=== PATIENT | female | born 1980 | race Caucasian/White ===

== ENCOUNTER → 2017-08-18 | Outpatient (CLI) | payer BC ==
[~2017-08-18] MED LIST: ADDERALL PO; ALBU90OI INH; AMOX500 PO; AZIT250 PO; AZIT500 PO; CARB200 PO; CIPR500 PO; CITA20 PO; CLON1 PO; CYAN1000I IM; DIVA250EC PO; ESCI20; FLUC150A PO; FLUC200 PO; HYDACE5 PO; HYDGUAL120 PO; LORA10ER PO; MULVITMINE PO; ONDA4ODT MM; PARO20 PO; PHENA200 PO; PROCODE120 PO; RXONDA4ODT MM; SERT100 PO; SULTRIDS PO; TEGRETOL; [UNRECOGNIZED DRUG - OTHER]
== END | disposition home or self-care (01) ==
LOC: LAB EV 15:01
DX: N39.0 Urinary tract infection, site not specified (principal)
CPT/HCPCS: 87086

== ENCOUNTER → 2019-04-26 | Outpatient (CLI) | payer BC, OTHER ==
[2019-04-26 16:49] LABS: Source, Urine Clean Catch
[2019-04-26 19:53] LABS: Blood, Urine 5+ (Neg); Glucose Qualitative, Urine Neg (Neg); Ketones, Urine 1+ (Neg); Leukocyte Esterase, Urine 2+ (Neg); Nitrite, Urine Neg (Neg); Protein, Urine 3+ (Neg); Specific Gravity, Urine 1.015 (1.003-1.022); Urobilinogen, Urine 2+ (Normal)
[2019-04-26 20:07] LABS: Appearance, Urine Cloudy (Clear); Bilirubin, Urine 1+ (Neg); Color, Urine Brown (P-Yellow)
[2019-04-26 20:08] LABS: Amorphous Mod (0-Heavy); Bacteria Many /hpf; Red Blood Cells, Urine TNTC /hpf (0-2); Squamous Epithelial Cells Few /hpf (Few); White Blood Cells, Urine 25-50 /hpf (0-5)
== END | disposition home or self-care (01) ==
LOC: LAB 14:25 → LAB SHORT 14:25 → LAB FUT 04-26 16:05
PROVIDERS: Family Medicine
DX: R35.0 Frequency of micturition (principal)
CPT/HCPCS: 81001; 87077; 87086; 87186

== ENCOUNTER → 2019-11-27 | Outpatient (CLI) | payer BC, OTHER ==
[2019-11-27 15:27] LABS: Source, Urine Clean Catch
[2019-11-27 18:54] LABS: Bilirubin, Urine Neg (Neg); Blood, Urine 3+ (Neg); Glucose Qualitative, Urine Neg (Neg); Ketones, Urine 1+ (Neg); Leukocyte Esterase, Urine 1+ (Neg); Nitrite, Urine Neg (Neg); Protein, Urine 1+ (Neg); Urobilinogen, Urine NORM (Normal)
[2019-11-27 19:10] LABS: Appearance, Urine Turbid (Clear); Color, Urine Yellow (P-Yellow)
[2019-11-27 19:11] LABS: Amorphous Heavy (0-Heavy)
[2019-11-27 19:14] LABS: Bacteria Few /hpf; Squamous Epithelial Cells Few /hpf (Few)
== END | disposition home or self-care (01) ==
LOC: LAB SHORT 15:24 → LAB 15:24 → LAB FUT 11-19 14:25
PROVIDERS: Family Medicine
DX: R35.0 Frequency of micturition (principal)
CPT/HCPCS: 81001; 87077; 87086; 87186

== ENCOUNTER 2020-08-16 19:00 | Emergency (ER) | payer OTHER ==
[~2020-08-16] VITALS: Ht 170.2 cm; Wt 97.5 kg
[2020-08-16] MEDS ORDERED: Robaxin-750750 MG PO (22:36)
[2020-08-16] MEDS ORDERED: IBUP800 PO (22:36)
== END 2020-08-16 22:54 | disposition home or self-care (01) ==
LOC: ER 19:00
DX: M54.6 Pain in thoracic spine (principal); M54.2 Cervicalgia; F17.200 Nicotine dependence, unspecified, uncomplicated; Z88.8 Allergy status to other drugs, medicaments and biological substances; Z79.899 Other long term (current) drug therapy; V49.50XA Passenger injured in collision with unspecified motor vehicles in traffic accident, initial encounter
CPT/HCPCS: 72070; 72125; 99284-25; A9270

== ENCOUNTER 2021-03-19 00:57 | Emergency (ER) | payer OTHER ==
[~2021-03-19] VITALS: Ht 170.2 cm; Wt 97.5 kg
[~2021-03-19 00:57] MED LIST changes: +IBUP800 PO; +Robaxin-750750 MG PO
[2021-03-19] MEDS ORDERED: AMPDEX10 (02:15)
[2021-03-19] MEDS ORDERED: Budeprion Xl300 MG PO (02:15)
[2021-03-19] MEDS ORDERED: Norco 5-325 Ta1 EACH PO (02:49)
[2021-03-19] MEDS ORDERED: IBUP800 PO (02:49)
[2021-03-23] MEDS ORDERED: LISI20 PO (19:33)
[2021-03-23] MEDS ORDERED: HYDCHL25 PO (19:36)
[2021-03-24] MEDS ORDERED: ACET500 PO (00:28)
[2021-03-24] MEDS ORDERED: CYCL10 PO (00:29)
[2021-03-24] MEDS ORDERED: ROXICODONE5 MG PO (00:30)
== END 2021-03-19 04:15 | disposition home or self-care (01) ==
LOC: ER 00:57
DX: S76.112A Strain of left quadriceps muscle, fascia and tendon, initial encounter (principal); W10.9XXA Fall (on) (from) unspecified stairs and steps, initial encounter; F17.200 Nicotine dependence, unspecified, uncomplicated
CPT/HCPCS: 73560-LT; 96374; 96375; 99283-25; A9270; J1885; J2270

== ENCOUNTER 2021-03-21 13:07 | Emergency (ER) | payer OTHER ==
[~2021-03-21] VITALS: Ht 170.2 cm; Wt 113.4 kg
[~2021-03-21 13:07] MED LIST changes: +AMPDEX10; +Budeprion Xl300 MG PO; +Norco 5-325 Ta1 EACH PO
[2021-03-21] MEDS ORDERED: Norco 5-325 Ta1 EACH PO (16:11)
[2021-03-21] MEDS ORDERED: IBU600 M1 PO (16:11)
== END 2021-03-21 16:35 | disposition home or self-care (01) ==
LOC: ER 13:07
DX: M25.562 Pain in left knee (principal); R53.1 Weakness; S76.122A Laceration of left quadriceps muscle, fascia and tendon, initial encounter; S76.112A Strain of left quadriceps muscle, fascia and tendon, initial encounter; M25.062 Hemarthrosis, left knee
CPT/HCPCS: 73721; 99282

== ENCOUNTER 2021-03-23 06:44 | Observation (INO) | payer OTHER ==
[~2021-03-23] VITALS: Ht 170.2 cm; Wt 119.0 kg
[~2021-03-23 06:44] MED LIST changes: +IBU600 M1 PO
[2021-03-23 09:53] LABS: SARS-Cov-2 (COVID-19) PCR, MMC NEGATIVE (NEGATIVE)
--- NOTE | 2021-03-23 10:38 | NUR ---
ATTEMPTING IV ACCESS AT THIS TIME
--- NOTE | 2021-03-23 10:39 | NUR ---
DIRECT ADMIT: PT TO UNIT AT ABOUT 0830. DR. HOUSER NOTIFIED THAT PT ON UNIT. PT TRANSFERED FROM WHEELCHAIR TO BED WITH 2 ASSIST AND GAIT BELT, PT ANXIOUS ABOUT ANY MOVEMENT. VSS, PT A/O. SURGICAL PACKET STICKERED AND BLOOD CONSENT SIGNED. WILL CTM AND AWAIT SURGERY.
--- NOTE | 2021-03-23 12:19 | NUR ---
PT TO OR AT ABOUT 1210
--- NOTE | 2021-03-23 18:00 | NUR ---
POST OP: REPORT RECEIVED FROM RNGENI. PT TO UNIT AT 9915. PT IS A/O, VSS. PT CRYING "THE PAIN, OH GOD" OVER AND OVER AGAIN. PT MEDICATED FOR PAIN AND ANXIETY. WILL CTM
[2021-03-23] MEDS ORDERED: LISI20 PO ×2 (19:33)
[2021-03-23] MEDS ORDERED: HYDCHL25 PO ×2 (19:36)
[2021-03-23 21:06] LABS: Source, Urine Clean Catch
[2021-03-23 21:09] LABS: Appearance, Urine Clear (Clear); Bilirubin, Urine Neg (Neg); Blood, Urine 5+ (Neg); Color, Urine Yellow (P-Yellow); Glucose Qualitative, Urine 2+ (Neg); Ketones, Urine Neg (Neg); Leukocyte Esterase, Urine Neg (Neg); Nitrite, Urine Neg (Neg); Protein, Urine Neg (Neg); Urobilinogen, Urine NORM (Normal); pH, Urine 6.5 (5.0-8.0)
[2021-03-23 21:19] LABS: Bacteria Not Seen /hpf; Other Crystals Rare /hpf; Red Blood Cells, Urine 0-2 /hpf (0-2); Squamous Epithelial Cells Rare /hpf (Few); White Blood Cells, Urine 0-2 /hpf (0-5)
[2021-03-24] MEDS ORDERED: ACET500 PO ×2 (00:28)
[2021-03-24] MEDS ORDERED: CYCL10 PO ×2 (00:29)
[2021-03-24] MEDS ORDERED: ROXICODONE5 MG PO ×2 (00:30)
--- NOTE | 2021-03-24 02:23 | NUR ---
SHIFT SUMMARY: POD 1 LEFT PATELLA TENDON REPAIR PATIENT IS ALERT AND ORIENTED X4. SHE IS ON RA. PAIN IS MANAGED WITH PO DILAUDID, TYLENOL, FLEXERIL, IGNACIO, AND XANAX. PATIENT HAS AN IMMOBILIZER IN PLACE ON THE LEFT LEG. THE IMMOBILIZER IS C/D/I. SHE DENIES NUMBNESS AND TINGLING IN ALL EXTREMITIES. SHE IS ABLE TO WIGGLE FINGERS AND TOES WHEN ASKED. SHE IS ABLE TO BE WEIGHT BEARING TOLERATED WITH IMMOBILIZER ON. SHE CALLS APPROPRIATELY. SHE HAS BEEN SLEEPING MAJORITY OF THE NIGHT AFTER TALKING WITH HER ABOUT HER ANXIETY. CALL LIGHT WITHIN REACH. SHE IS TOLERATING PO INTAKE AND IS VOIDING. THE PLAN IS TO HAVE PT WORK WITH HER AND THEN POSSIBLE DISCHARGE LATER TODAY.
--- NOTE | 2021-03-24 10:53 | NUR ---
PT HAS WORKED WITH PHYSICAL THERAPY TODAY, AND IS SITTING UP IN CHAIR. USING 1X ASSIST WITH FWW AND GAIT BELT. BRACE IN PLACE FOR ALL TRANSFERS. PT C/O PAIN IN LLE; MEDICATED PER ORDERS.
--- NOTE | 2021-03-24 12:03 | NUR ---
PT WORKED WITH OT RECENTLY. STATES SHE GOT DIZZY WHEN STANDING UP, HOWEVER SBP TAKEN AT THAT TIME WAS IN THE 150'S. PT BACK IN BED.
--- NOTE | 2021-03-24 14:07 | NUR ---
TRANSPORT ARRANGED FOR PT AT 1700 VIA [facility].
--- NOTE | 2021-03-24 17:09 | NUR ---
DISCHARGE PT A/O X4, TRANSFERRING WITH FWW AND GAIT BELT, SBA. TOLERATING PO INTAKE AND VOIDING. PT DC'D AT 1700 VIA [facility]. PERSONAL BELONGINGS SENT WITH PT. DC INSTRUCTIONS REVIEWED WITH PT; REPORTS NO QUESTIONS OR CONCERNS. EXTRA DRESSINGS AND SCRIPTS SENT WITH PT. PAIN MANAGED WITH PO PAIN MED PER ORDERS.
== END 2021-03-24 18:36 | disposition home or self-care (01) ==
LOC: SURS 06:44
PROVIDERS: ADMIT Orthopaedic Surgery
PROC: 0LQR0ZZ Repair Left Knee Tendon, Open Approach (ICD-10-PCS; principal; 2021-03-23 12:00)
DX: S76.112A Strain of left quadriceps muscle, fascia and tendon, initial encounter (principal); F17.200 Nicotine dependence, unspecified, uncomplicated; F32.9 Major depressive disorder, single episode, unspecified; X50.1XXA Overexertion from prolonged static or awkward postures, initial encounter; Z20.822 Contact with and (suspected) exposure to COVID-19
CPT/HCPCS: 73560-LT; 81001; 96365; 97110; 97116; 97162; 97166; 97530; A9270; C1713; C1762; G0378; J0171; J0690; J1100; J1885; J2060; J2405; J2704; J3010; J7050; J7120; U0004

== ENCOUNTER → 2022-05-06 | Outpatient (CLI) | payer OTHER ==
[~2022-05-06] MED LIST changes: +ACET500 PO; +CYCL10 PO; +HYDCHL25 PO; +LISI20 PO; +ROXICODONE5 MG PO
[2022-05-06 13:45] LABS: U Amphetamine Screen DETECTED; U Methamphetamine Screen DETECTED
[2022-05-06 13:46] LABS: U Barbituate Screen Not Detected; U Benzodiazapine Screen Not Detected; U Buprenorphine Screen Not Detected; U Cannabinoids Screen Not Detected; U Cocaine Screen Not Detected; U Methadone Screen Not Detected; U Opiates Screen Not Detected; U Oxycodone Screen Not Detected; U Phencyclidine Screen Not Detected; U Propoxyphene Screen Not Detected
== END | disposition home or self-care (01) ==
LOC: LAB 12:23 → LAB SHORT 12:23
PROVIDERS: Nurse Practitioner Psychiatric/Mental Health
DX: Z51.81 Encounter for therapeutic drug level monitoring (principal); F90.2 Attention-deficit hyperactivity disorder, combined type
CPT/HCPCS: G0480

== ENCOUNTER → 2022-06-14 | Outpatient (CLI) | payer OTHER | END | disposition home or self-care (01) | LOC: LAB SHORT 12:59 → LAB 12:59 | DX: L08.9 Local infection of the skin and subcutaneous tissue, unspecified (principal) | CPT/HCPCS: 87070; 87106; 87205 ==

== ENCOUNTER → 2022-08-11 | Outpatient (CLI) | payer OTHER ==
[2022-08-11 13:03] LABS: U Amphetamine Screen DETECTED; U Barbituate Screen Not Detected; U Benzodiazapine Screen Not Detected; U Buprenorphine Screen Not Detected; U Cannabinoids Screen Not Detected; U Cocaine Screen Not Detected; U Methadone Screen Not Detected; U Methamphetamine Screen DETECTED; U Opiates Screen Not Detected; U Oxycodone Screen Not Detected; U Phencyclidine Screen Not Detected
[2022-08-11 13:04] LABS: U Propoxyphene Screen Not Detected
== END | disposition home or self-care (01) ==
LOC: LAB SHORT 10:30
PROVIDERS: Nurse Practitioner Psychiatric/Mental Health
DX: F90.2 Attention-deficit hyperactivity disorder, combined type (principal)

== ENCOUNTER 2023-05-09 11:34 | Emergency (ER) | payer OTHER ==
[~2023-05-09] VITALS: Ht 170.2 cm; Wt 113.4 kg
[2023-05-09 12:41] LABS: Source, Urine Clean Catch
[2023-05-09 13:06] LABS: Appearance, Urine Cloudy (Clear); Bilirubin, Urine Neg (Neg); Blood, Urine 5+ (Neg); Color, Urine Amber (P-Yellow); Glucose Qualitative, Urine Neg (Neg); Ketones, Urine Neg (Neg); Leukocyte Esterase, Urine 3+ (Neg); Nitrite, Urine Pos (Neg); Protein, Urine 3+ (Neg); Urobilinogen, Urine 2+ (Normal)
[2023-05-09 13:20] LABS: Hyaline Casts 0-2 /lpf (0-2)
[2023-05-09 13:22] LABS: Bacteria Many /hpf; Red Blood Cells, Urine TNTC /hpf (0-2); Squamous Epithelial Cells Rare /hpf (Few); White Blood Cells, Urine 25-50 /hpf (0-5)
[2023-05-09 13:35] LABS: BASOPHILS ABSOLUTE AUTO 0.05 K/mm3 (0.00-0.23); BASOPHILS PERCENT AUTO 0 % (0-2); EOSINOPHILS ABSOLUTE AUTO 0.03 K/mm3 (0.00-0.68); EOSINOPHILS PERCENT AUTO 0 % (0-6); Hematocrit 44.1 % (33.0-51.0); Hemoglobin 14.8 g/dL (11.5-16.0); IMMATURE GRAN ABSOLUTE AUTO 0.07 K/mm3 (0.00-0.10); IMMATURE GRAN PERCENT AUTO 1 % (0-1); LYMPHOCYTES ABSOLUTE AUTO 0.94 K/mm3 (0.84-5.20); LYMPHOCYTES PERCENT AUTO 7 % (21-46); MONOCYTES ABSOLUTE AUTO 1.43 K/mm3 (0.16-1.47); MONOCYTES PERCENT AUTO 11 % (4-13); Mean Corpuscular HGB 27.9 pg (26.0-34.0); Mean Corpuscular HGB Conc 33.6 g/dL (31.5-36.5); Mean Corpuscular Volume 83 fL (80-100); Mean Platelet Volume 9.9 fL (9.1-12.4); NEUTROPHILS ABSOLUTE AUTO 10.93 K/mm3 (1.96-9.15); NEUTROPHILS PERCENT AUTO 81 % (41-73); Platelet Count 180 K/mm3 (150-400); RDW Coefficient Variation 13.6 % (11.7-14.2); RDW Standard Deviation 41.7 fL (35.1-46.3); Red Blood Cell Count 5.31 M/mm3 (3.80-5.20); White Blood Cell Count 13.45 K/mm3 (4.00-11.30)
[2023-05-09 13:43] LABS: Influenza A, PCR NEGATIVE (NEGATIVE); Influenza B, PCR NEGATIVE (NEGATIVE); Resp Syncytial Virus, PCR NEGATIVE (NEGATIVE); SARS-Cov-2 (COVID-19) PCR, MMC NEGATIVE (NEGATIVE)
[2023-05-09 14:12] LABS: Albumin, Blood 2.9 g/dL (3.4-5.0); Albumin/Globulin Ratio 0.7 (0.8-1.8); Bilirubin, Total 0.7 mg/dL (0.1-1.0); Bun/Creatinine Ratio 7.4 (12.0-20.0); Calcium, Blood 8.2 mg/dL (8.5-10.1); Creatinine, Blood 0.94 mg/dL (0.40-1.00); Globulin, Blood 4.2 g/dL (2.2-4.0); Potassium, Blood 3.7 mmol/L (3.5-5.5); Total Protein, Blood 7.1 g/dL (6.4-8.2)
[2023-05-09] MEDS ORDERED: CEPHALEXIN500 M2 PO (14:24)
[2023-05-09 15:18] VITALS: BP 103/67
== END 2023-05-09 15:20 | disposition home or self-care (01) ==
LOC: ER 11:34
PROVIDERS: Emergency Medicine; Student in an Organized Health Care Education/Training Program
DX: N12 Tubulo-interstitial nephritis, not specified as acute or chronic (principal); F17.200 Nicotine dependence, unspecified, uncomplicated; Z20.822 Contact with and (suspected) exposure to COVID-19; Z79.899 Other long term (current) drug therapy
CPT/HCPCS: 0241U; 80053; 81001; 83690; 85025; 87077; 87086; 87186; 96361; 96365; 96375; 99284-25; A9270; J0696; J1885; J2405; J7030

== ENCOUNTER → 2024-02-22 | Outpatient (CLI) | payer OTHER ==
[~2024-02-22] MED LIST changes: +CEPHALEXIN500 M2 PO
[2024-02-22 19:53] LABS: U Amphetamine Screen DETECTED; U Barbituate Screen Not Detected; U Benzodiazapine Screen Not Detected; U Buprenorphine Screen Not Detected; U Cannabinoids Screen DETECTED; U Cocaine Screen Not Detected; U Methadone Screen Not Detected; U Methamphetamine Screen Not Detected; U Opiates Screen Not Detected; U Oxycodone Screen Not Detected; U Phencyclidine Screen Not Detected
[2024-02-26 07:35] LABS: 11-NOR-9-CARBOXY-THC,URN,QUANT >500 ng/mL
[2024-02-26 15:35] LABS: AMPHETAMINE,URN,QUANT 1531 ng/mL; MDA,URN,QUANT <200 ng/mL; MDEA,URN,QUANT <200 ng/mL; MDMA,URN,QUANT <200 ng/mL; METHAMPHETAMINE,URN,QUANT <200 ng/mL; PHENTERMINE,URN,QUANT <200 ng/mL
== END ==
LOC: LAB SHORT 18:46 → LAB 18:46
PROVIDERS: Nurse Practitioner Psychiatric/Mental Health
DX: F90.2 Attention-deficit hyperactivity disorder, combined type (principal)
CPT/HCPCS: G0480

== ENCOUNTER → 2024-03-24 | Outpatient (CLI) | payer OTHER ==
[2024-03-24 19:52] LABS: Bacterial Vaginosis PCR Negative (NEGATIVE); Candida glabrata-krusei, PCR NOT DETECTED (NOT DETECT)
[2024-03-24 20:10] LABS: Candida Group, PCR DETECTED (NOT DETECT)
== END ==
LOC: LAB 16:05 → LAB SHORT 16:05
PROVIDERS: General Practice
DX: B37.31 Acute candidiasis of vulva and vagina (principal)
CPT/HCPCS: 87481; 87661; 87801

== ENCOUNTER → 2024-06-22 | Outpatient (CLI) | payer OTHER ==
[2024-06-22 19:12] LABS: U Cannabinoids Screen DETECTED
[2024-06-22 19:13] LABS: U Amphetamine Screen DETECTED; U Barbituate Screen Not Detected; U Benzodiazapine Screen DETECTED; U Buprenorphine Screen Not Detected; U Cocaine Screen Not Detected; U Methadone Screen Not Detected; U Methamphetamine Screen DETECTED; U Opiates Screen Not Detected; U Oxycodone Screen Not Detected; U Phencyclidine Screen Not Detected
[2024-06-26 18:06] LABS: 7-AMINOCLONAZEPAM, URN, QUANT 104 ng/mL; A-HYDROXYALPRAZOLAM, URN, QNT <5 ng/mL; A-HYDROXYMIDAZOLAM, URN, QNT <20 ng/mL; ALPRAZOLAM, URN, QUANT <5 ng/mL; CHLORDIAZEPOXIDE, URN, QUANT <20 ng/mL; CLONAZEPAM, URN, QUANT <5 ng/mL; DIAZEPAM, URN, QUANT <20 ng/mL; LORAZEPAM, URN, QUANT <20 ng/mL; MIDAZOLAM, URN, QUANT <20 ng/mL; NORDIAZEPAM, URN, QUANT <20 ng/mL; OXAZEPAM, URN, QUANT <20 ng/mL; TEMAZEPAM, URN, QUANT <20 ng/mL
[2024-06-27 09:13] LABS: 11-NOR-9-CARBOXY-THC,URN,QUANT >500 ng/mL
[2024-06-29 19:27] LABS: AMPHETAMINE,URN,QUANT >5000 ng/mL; MDA,URN,QUANT <200 ng/mL; MDEA,URN,QUANT <200 ng/mL; MDMA,URN,QUANT <200 ng/mL; METHAMPHETAMINE,URN,QUANT 1018 ng/mL; PHENTERMINE,URN,QUANT <200 ng/mL
== END ==
LOC: LAB SHORT 16:41 → LAB 16:41
PROVIDERS: Nurse Practitioner Psychiatric/Mental Health
DX: F90.2 Attention-deficit hyperactivity disorder, combined type (principal)
CPT/HCPCS: G0480; G0481

== ENCOUNTER → 2024-09-01 | Outpatient (CLI) | payer OTHER | LOC: LAB SHORT 10:44 → LAB 10:44 | DX: J02.9 Acute pharyngitis, unspecified (principal) | CPT/HCPCS: 87081; 87147 ==